=== PATIENT | female | born 1950 | race Asian ===

== ENCOUNTER 2020-11-10 10:24 | Emergency (ER) | payer OTHER, MEDICAID ==
[~2020-11-10] VITALS: Ht 149.9 cm; Wt 43.1 kg
[2020-11-10 10:24] VITALS: BP_SYST 130
[2020-11-10 10:59] LABS: PROTHROMBIN TIME 20.4 SECS (9.5-12.5)
[2020-11-10] MEDS ORDERED: WARF2.5T83 PO ×2 (11:16→11:19)
[2020-11-10] MEDS ORDERED: DIGO125T PO (11:20)
[2020-11-10] MEDS ORDERED: DILT120C21 PO (11:22)
[2020-11-10 11:26] VITALS: BP_SYST 130
== END 2020-11-10 11:25 | disposition home or self-care (01) ==
LOC: SED 10:24
DX: R79.1 Abnormal coagulation profile (principal); Z76.0 Encounter for issue of repeat prescription; Z88.8 Allergy status to other drugs, medicaments and biological substances; Z79.899 Other long term (current) drug therapy
CPT/HCPCS: 36415; 85610-TC; 99282